=== PATIENT | male | born 2000 | race African-American/Black ===

== ENCOUNTER 2021-03-30 10:24 | Inpatient (IN) | payer MEDICAID ==
[~2021-03-30] VITALS: Ht 165.1 cm; Wt 49.9 kg
[2021-03-30] MEDS ORDERED: KEPPSOL MT (10:39)
[2021-03-30] MEDS ORDERED: BETDL TP (10:39)
[2021-03-30] MEDS ORDERED: SODIUM CHLORIDE 0.9% 1,000 ML IV ONE (11:00)
[2021-03-30] MEDS ORDERED: LEVETIRACETAM 1000MG PREMIX 100 ML IV ONE (11:00)
[2021-03-30 11:14] LABS: CLARITY URINE CLEAR (CLEAR); COLOR URINE YELLOW (YELLOW); KETONES URINE TRACE (NEGATIVE); LEUKOCYTE ESTERASE URINE NEGATIVE (NEGATIVE); NITRITE URINE NEGATIVE (NEGATIVE); OCCULT BLOOD URINE TRACE (NEGATIVE); PROTEIN URINE 1+ (NEGATIVE); SPECIFIC GRAVITY URINE 1.021 (1.005-1.030); UROBILINOGEN URINE 0.2 E.U./dL (0.2-1.0)
[2021-03-30 11:23] LABS: BASOPHILS % 0.2 % (0.0-2.0); EOSINOPHILS % 0.3 % (0.0-5.0); HEMATOCRIT. 41.4 % (42.0-52.0); HEMOGLOBIN. 13.4 g/dL (14.0-18.0); LYMPHOCYTES % 18.7 % (20.0-50.0); MEAN CORPUSCULAR HEMOGLOBIN 28.5 pg (28.0-32.0); MEAN PLATELET VOLUME 12.7 fl (7.4-10.4); MONOCYTES % 4.1 % (2.0-8.0); NEUTROPHILS % 76.7 % (40.0-76.0); PLATELET 160 x1000/uL (130-400); RED BLOOD CELL COUNT 4.71 mill/uL (4.7-6.1); RED CELL DISTRIBUTION WIDTH 14.2 % (11.6-14.6)
[2021-03-30 11:25] LABS: CHLORIDE 108 mEq/L (98-107)
[2021-03-30 11:30] LABS: ETHANOL BLOOD < 10 mg/dL
[2021-03-30 11:35] LABS: *AMPHETAMINES SCREEN URINE NEGATIVE (NEGATIVE); *BARBITURATES SCREEN URINE NEGATIVE (NEGATIVE); *BENZODIAZEPINES SCREEN URINE NEGATIVE (NEGATIVE); *COCAINE SCREEN URINE NEGATIVE (NEGATIVE); OPIATES URINE SCREEN NEGATIVE (NEGATIVE)
[2021-03-30 11:36] LABS: CANNABINOID URINE SCREEN NEGATIVE (NEGATIVE); PHENCYCLIDINE URINE SCREEN NEGATIVE (NEGATIVE)
[2021-03-30] MEDS ORDERED: DEXTROSE 50% WATER 50ML SYRINGE IV ONE ×2 (11:45→15:15)
[2021-03-30] MEDS ORDERED: DEXT 5%/0.45% NACL KCL 20MEQ/L 1,000 ML IV ONE (15:15)
[2021-03-30] MEDS ORDERED: ONDANSETRON HCL 4MG/2ML INJ IV PRN (20:30)
[2021-03-30] MEDS ORDERED: LORAZEPAM 2MG/ML CPJ IV PRN (20:30)
[2021-03-30] MEDS ORDERED: DOCUSATE SODIUM 100MG CAPSULE PO PRN (20:30)
[2021-03-30] MEDS ORDERED: NITROGLYCERIN 0.4MG TABLET SL SL PRN (20:30)
[2021-03-30] MEDS ORDERED: GUAIFENESIN 200MG/10ML SUGAR FREE UDC PO PRN (20:30)
[2021-03-30] MEDS ORDERED: MAGNESIUM/ALUMINUM HYDROXIDE/SIMETHICONE 30ML UDC PO PRN (20:30)
[2021-03-30] MEDS ORDERED: ZOLPIDEM TARTRATE 5MG TABLET PO PRN (20:30)
[2021-03-30] MEDS ORDERED: ACETAMINOPHEN 325MG TABLET PO PRN ×2 (20:30)
[2021-03-30] MEDS ORDERED: IPRATROPIUM/ALBUTEROL 0.5-3(2.5)MG/3ML NEB NEB PRN (20:30)
[2021-03-30] MEDS ORDERED: CLONIDINE 0.1MG TABLET PO PRN (20:30)
[2021-03-30] MEDS ORDERED: LEVETIRACETAM 500MG TABLET PO SCH (21:00)
[2021-03-30 21:02] LABS: TOTAL IRON BINDING CAPACITY 276 ug/dL (250-450)
[2021-03-30 22:25] LABS: FOLIC ACID (FOLATE) SERUM >20 ng/mL ng/mL (>5.38)
[2021-03-30 22:36] LABS: VITAMIN B12 SERUM 189 pg/mL (211-911)
[2021-03-30] MEDS: FAMOTIDINE 20MG TABLET PO SCH ×2 (23:01→23:30)
[2021-03-30] MEDS: LEVETIRACETAM 500MG/5ML CUP PO SCH (23:29)
[2021-03-30] MEDS ORDERED: CYANOCOBALAMIN 1000MCG/ML VIAL IM SCH (23:30)
[2021-03-31 01:40] VITALS: BP 105/70
[2021-03-31 04:00] VITALS: BP 85/53
[2021-03-31 08:00] VITALS: BP 104/65
[2021-03-31] MEDS: LEVETIRACETAM 500MG/5ML CUP PO SCH ×2 (09:09→22:07)
[2021-03-31] MEDS: CYANOCOBALAMIN 1000MCG/ML VIAL IM SCH (09:10)
[2021-03-31 10:15] LABS: CHLORIDE 106 mEq/L (98-107)
[2021-03-31 10:18] LABS: BASOPHILS % 0.2 % (0.0-2.0); HEMATOCRIT. 40.7 % (42.0-52.0); HEMOGLOBIN. 13.3 g/dL (14.0-18.0); LYMPHOCYTES % 20.3 % (20.0-50.0); MEAN CORPUSCULAR HEMOGLOBIN 28.4 pg (28.0-32.0); MONOCYTES % 9.8 % (2.0-8.0); NEUTROPHILS % 68.7 % (40.0-76.0); RED BLOOD CELL COUNT 4.68 mill/uL (4.7-6.1); RED CELL DISTRIBUTION WIDTH 14.2 % (11.6-14.6)
[2021-03-31 10:20] LABS: PHOSPHORUS 3.1 mg/dL (2.5-4.9)
[2021-03-31 12:00] VITALS: BP 92/59
[2021-03-31] MEDS: DEXT 5%/LACTATED RINGERS 1,000 ML IV SCH (12:36)
[2021-03-31 13:50] LABS: MEAN PLATELET VOLUME 12.5 fl (7.4-10.4); PLATELET 128 x1000/uL (130-400)
[2021-03-31 16:00] VITALS: BP 101/52
[2021-03-31 20:00] VITALS: BP 110/67
[2021-03-31] MEDS: FAMOTIDINE 20MG TABLET PO SCH (22:08)
[2021-04-01] VITALS: BP 101/76
[2021-04-01 04:00] VITALS: BP 127/81
[2021-04-01] MEDS: DEXT 5%/LACTATED RINGERS 1,000 ML IV SCH ×2 (07:02→15:23)
[2021-04-01 08:00] VITALS: BP 104/61
[2021-04-01] MEDS: FAMOTIDINE 20MG TABLET PO SCH ×2 (08:49→21:45)
[2021-04-01] MEDS: CYANOCOBALAMIN 1000MCG/ML VIAL IM SCH (08:49)
[2021-04-01] MEDS: LEVETIRACETAM 500MG/5ML CUP PO SCH ×2 (08:49→21:45)
[2021-04-01 12:00] VITALS: BP 123/53
[2021-04-01 16:00] VITALS: BP 122/65
[2021-04-01 20:05] VITALS: BP 115/64
[2021-04-02 00:05] VITALS: BP 105/65
[2021-04-02 04:00] VITALS: BP 108/47
[2021-04-02 08:00] VITALS: BP 94/50
[2021-04-02] MEDS: LEVETIRACETAM 500MG/5ML CUP PO SCH (09:14)
[2021-04-02] MEDS: FAMOTIDINE 20MG TABLET PO SCH (09:14)
[2021-04-02] MEDS: CYANOCOBALAMIN 1000MCG/ML VIAL IM SCH (09:14)
[2021-04-02] MEDS: DEXT 5%/LACTATED RINGERS 1,000 ML IV SCH (09:16)
[2021-04-02 09:54] VITALS: BP 94/50
[2021-04-02 22:43] LABS: METHADONE URINE SCREEN NEGATIVE (NEGATIVE)
== END 2021-04-02 16:25 | disposition home or self-care (01) | DRG 53 ==
LOC: ER 11:36 → MICUSO 20:14 → EDBEDREQ 20:22 → EDBEDREQTM 20:22 → 8WST 23:54
PROVIDERS: ADMIT Internal Medicine; ATTEND Internal Medicine
DX: G40.909 Epilepsy, unspecified, not intractable, without status epilepticus (principal); G92.8 Other toxic encephalopathy; D51.9 Vitamin B12 deficiency anemia, unspecified; E16.2 Hypoglycemia, unspecified; F84.0 Autistic disorder; R74.01 Elevation of levels of liver transaminase levels; Z91.14 Patient's other noncompliance with medication regimen
CPT/HCPCS: 36415; 80053; 80305; 80320; 81003; 82607; 82746; 82962; 83036; 83540; 83550; 83735; 84100; 85025; 87426; 93005; 93970; 99285; J1953; J3420; J7030; G0480